=== PATIENT | female | born 1960 | race African-American/Black ===

== ENCOUNTER 2022-03-21 10:21 | Emergency (ER) | payer OTHER ==
[2022-03-21] MEDS ORDERED: Boostrix 0.5 ML (Tdap) VIAL ONE ×2 (11:22→11:24)
[2022-03-21 11:26] LABS: #Eosinphils 0.2 10x3/uL (0.0-0.5); #Monocytes 0.4 10x3/uL (0.0-1.1); %Basophils 0.6 % (0.0-2.0); %Eosinophils 2.4 % (0.0-6.0); %Lymphocytes 32.8 % (18.0-47.0); %Monocytes 6.3 % (0.0-10.0); Hemoglobin 13.8 g/dL (12.0-15.5); Mean Corpuscular HGB CONC 31.7 g/dL (32.0-36.0); Mean Corpuscular Hemoglobin 27.5 pg (27.0-33.0); Mean Corpuscular Volume 86.9 fl (81.6-98.3); Mean Platelet Volume 9.3 fl (7.4-10.4); Platelet Count 333 10x3/uL (150-450); RBC Distribution Width 14.1 % (11.5-14.5); Red Blood Cell (RBC) Count 5.02 10x6/uL (3.90-5.03)
[2022-03-21] MEDS ORDERED: Doxycycline 100 MG CAP PO SCH (11:30)
[2022-03-21 11:55] LABS: ALT (SGPT) 13 U/L (8-55); AST (SGOT) 12 U/L (5-34); Albumin 4.2 g/dL (3.5-5.0); Alkaline Phosphatase 109 U/L (40-110); Anion Gap 15 mmol/L (10-20); BUN (Urea Nitrogen) 14 mg/dL (9.8-20.1); Bilirubin, Total 0.9 mg/dL (0.2-1.2); Calc. Creatinine Clearance 0 mL/min (70-130); Calcium 9.7 mg/dL (7.8-10.44); Carbon Dioxide 29 mmol/L (22-29); Chloride 102 mmol/L (98-107); Estimated GFR 78; Globulin 3.2 g/dL (2.4-3.5); Glucose 124 mg/dL (70-105); Potassium 4.3 mmol/L (3.5-5.1); Protein, Total 7.4 g/dL (6.0-8.3); Sodium 142 mmol/L (136-145)
== END 2022-03-21 12:05 | disposition home or self-care (01) ==
LOC: CSHERS 10:21
DX: S91.332A Puncture wound without foreign body, left foot, initial encounter (principal); L03.116 Cellulitis of left lower limb; E11.40 Type 2 diabetes mellitus with diabetic neuropathy, unspecified; W26.8XXA Contact with other sharp object(s), not elsewhere classified, initial encounter
CPT/HCPCS: 71045; 80053; 84484; 85025; 90471; 90715; 93005; 94760

== ENCOUNTER 2022-04-23 13:39 | Inpatient (IN) | payer OTHER ==
[2022-04-23] MEDS ORDERED: Aspirin Chewable 81 MG TAB ONE (14:28)
[2022-04-23 14:44] LABS: #Eosinphils 0.1 10x3/uL (0.0-0.5); #Monocytes 0.3 10x3/uL (0.0-1.1); #Neutrophils 4.6 10x3/uL (1.5-8.4); %Basophils 0.5 % (0.0-2.0); %Eosinophils 1.8 % (0.0-6.0); %Lymphocytes 32.3 % (18.0-47.0); %Monocytes 4.5 % (0.0-10.0); %Neutrophils 60.5 % (40.0-75.0); Hemoglobin 13.6 g/dL (12.0-15.5); Mean Corpuscular HGB CONC 32.5 g/dL (32.0-36.0); Mean Corpuscular Hemoglobin 27.4 pg (27.0-33.0); Mean Corpuscular Volume 84.5 fl (81.6-98.3); Mean Platelet Volume 9.5 fl (7.4-10.4); Platelet Count 327 10x3/uL (150-450); RBC Distribution Width 14.5 % (11.5-14.5); Red Blood Cell (RBC) Count 4.96 10x6/uL (3.90-5.03); White Blood Cell (WBC) Count 7.6 10x3/uL (3.5-10.5)
[2022-04-23 15:02] LABS: ALT (SGPT) 13 U/L (8-55); AST (SGOT) 11 U/L (5-34); Albumin 4.2 g/dL (3.5-5.0); Alkaline Phosphatase 94 U/L (40-110); Anion Gap 14 mmol/L (10-20); BUN (Urea Nitrogen) 16 mg/dL (9.8-20.1); Bilirubin, Total 0.9 mg/dL (0.2-1.2); CK (CPK) 89 U/L (29-168); Calc. Creatinine Clearance 0 mL/min (70-130); Calcium 9.4 mg/dL (7.8-10.44); Carbon Dioxide 25 mmol/L (22-29); Chloride 106 mmol/L (98-107); Estimated GFR 63; Globulin 3.1 g/dL (2.4-3.5); Glucose 229 mg/dL (70-105); Lipase 50 U/L (8-78); Magnesium 2.1 mg/dL (1.6-2.6); Potassium 3.7 mmol/L (3.5-5.1); Protein, Total 7.3 g/dL (6.0-8.3); Sodium 141 mmol/L (136-145)
[2022-04-23] MEDS ORDERED: Nitroglycerin 2% Ointment 1 INCH/1 GM Packet ONE (16:54)
[2022-04-23] MEDS ORDERED: Ondansetron PF 4 MG/2 ML Vial IVP PRN (17:29)
[2022-04-23] MEDS ORDERED: Ondansetron ODT 4 MG TAB PO PRN (17:29)
[2022-04-23] MEDS ORDERED: Acetaminophen 650 MG Suppository PR PRN (17:29)
[2022-04-23] MEDS ORDERED: Acetaminophen 325 MG TAB PO PRN (17:29)
[2022-04-23] MEDS ORDERED: Insulin Regular 300 UNITS/3 ML VIAL SC PRN ×2 (17:31)
[2022-04-23] MEDS ORDERED: Dextrose 50% Abboject 50 ML SYRINGE SLOW IVP PRN (17:31)
[2022-04-23] MEDS ORDERED: Dextrose 5% in Water 1,000 ML IV PRN (17:31)
[2022-04-23] MEDS ORDERED: Gabapentin 300 MG CAP PO PRN (17:42)
[2022-04-23] MEDS ORDERED: Rivaroxaban 2.5 MG TAB PO SCH (17:45)
[2022-04-23 18:17] VITALS: BMI 39.5
[2022-04-23 19:25] LABS: Troponin I Less than 0.010 ng/mL (< 0.028)
[2022-04-23] MEDS: Simvastatin 10 MG TAB PO SCH (20:29)
[2022-04-23] MEDS: Metoprolol Tartrate 25 MG TAB PO SCH (20:29)
[2022-04-23 20:56] LABS: SARS-CoV-2 NAA Rapid Test Not Detected (NotDetected)
[2022-04-23] MEDS ORDERED: Enoxaparin Sodium 120 MG/0.8 ML SYRINGE SC SCH (21:00)
[2022-04-23 21:29] LABS: Troponin I Less than 0.010 ng/mL (< 0.028)
[2022-04-23] MEDS ORDERED: Enoxaparin Sodium 100 MG/ML SYRINGE SC SCH (22:00)
[2022-04-23] MEDS ORDERED: Enoxaparin Sodium 30 MG/0.3 ML SYRINGE SC SCH (22:00)
[2022-04-23] MEDS: Nitroglycerin 2% Ointment 1 INCH/1 GM Packet TOP SCH (23:35)
[2022-04-24 05:04] LABS: #Eosinphils 0.2 10x3/uL (0.0-0.5); #Monocytes 0.5 10x3/uL (0.0-1.1); #Neutrophils 3.3 10x3/uL (1.5-8.4); %Basophils 0.5 % (0.0-2.0); %Eosinophils 2.4 % (0.0-6.0); %Lymphocytes 46.5 % (18.0-47.0); %Monocytes 6.4 % (0.0-10.0); %Neutrophils 43.8 % (40.0-75.0); Hemoglobin 12.8 g/dL (12.0-15.5); Mean Corpuscular HGB CONC 32.1 g/dL (32.0-36.0); Mean Corpuscular Hemoglobin 27.2 pg (27.0-33.0); Mean Corpuscular Volume 84.7 fl (81.6-98.3); Mean Platelet Volume 9.1 fl (7.4-10.4); Platelet Count 292 10x3/uL (150-450); RBC Distribution Width 14.6 % (11.5-14.5); Red Blood Cell (RBC) Count 4.71 10x6/uL (3.90-5.03); White Blood Cell (WBC) Count 7.5 10x3/uL (3.5-10.5)
[2022-04-24 05:19] LABS: Anion Gap 11 mmol/L (10-20); BUN (Urea Nitrogen) 16 mg/dL (9.8-20.1); Calc. Creatinine Clearance 158 mL/min (70-130); Calcium 9.3 mg/dL (7.8-10.44); Carbon Dioxide 27 mmol/L (22-29); Chloride 106 mmol/L (98-107); Estimated GFR 86; Glucose 111 mg/dL (70-105); Potassium 3.7 mmol/L (3.5-5.1); Sodium 140 mmol/L (136-145)
[2022-04-24] MEDS: Nitroglycerin 2% Ointment 1 INCH/1 GM Packet TOP SCH (05:35)
[2022-04-24 05:36] LABS: Cardiac Risk 3.2 (Less than 4.5); Cholesterol 104 mg/dl (< 200 Desired); HDL Cholesterol 33 mg/dL (>60 Neg Risk); LDL Cholesterol, Calculated 54 mg/dL; Triglycerides 84 mg/dL (Less than 150)
[2022-04-24] MEDS ORDERED: Enoxaparin Sodium 30 MG/0.3 ML SYRINGE SC SCH (09:00)
[2022-04-24] MEDS ORDERED: Enoxaparin Sodium 100 MG/ML SYRINGE SC SCH (09:00)
[2022-04-24] MEDS: Clopidogrel Bisulfate 75 MG TAB PO SCH (09:04)
[2022-04-24] MEDS: Metoprolol Tartrate 25 MG TAB PO SCH ×2 (09:04→22:20)
[2022-04-24] MEDS ORDERED: Dronedarone HCl 400 MG TAB PO SCH (11:00)
[2022-04-24] MEDS ORDERED: Rivaroxaban 10 MG TAB PO SCH (11:00)
[2022-04-24 11:19] LABS: Troponin I Less than 0.010 ng/mL (< 0.028)
[2022-04-24 15:36] LABS: Troponin I Less than 0.010 ng/mL (< 0.028)
[2022-04-24] MEDS: Dronedarone HCl 400 MG TAB PO SCH (18:38)
[2022-04-24 19:13] LABS: Troponin I Less than 0.010 ng/mL (< 0.028)
[2022-04-24] MEDS: Simvastatin 10 MG TAB PO SCH (22:20)
[2022-04-24 22:51] LABS: Troponin I Less than 0.010 ng/mL (< 0.028)
[2022-04-25 05:49] LABS: #Eosinphils 0.2 10x3/uL (0.0-0.5); #Monocytes 0.5 10x3/uL (0.0-1.1); #Neutrophils 3.6 10x3/uL (1.5-8.4); %Basophils 0.4 % (0.0-2.0); %Eosinophils 2.7 % (0.0-6.0); %Lymphocytes 37.7 % (18.0-47.0); %Monocytes 7.3 % (0.0-10.0); %Neutrophils 51.5 % (40.0-75.0); Hemoglobin 12.8 g/dL (12.0-15.5); Mean Corpuscular HGB CONC 31.4 g/dL (32.0-36.0); Mean Corpuscular Hemoglobin 26.6 pg (27.0-33.0); Mean Corpuscular Volume 84.6 fl (81.6-98.3); Mean Platelet Volume 9.4 fl (7.4-10.4); Platelet Count 304 10x3/uL (150-450); RBC Distribution Width 14.6 % (11.5-14.5); Red Blood Cell (RBC) Count 4.81 10x6/uL (3.90-5.03)
[2022-04-25 05:57] LABS: Anion Gap 11 mmol/L (10-20); BUN (Urea Nitrogen) 13 mg/dL (9.8-20.1); Calc. Creatinine Clearance 147 mL/min (70-130); Calcium 9.3 mg/dL (7.8-10.44); Carbon Dioxide 28 mmol/L (22-29); Chloride 105 mmol/L (98-107); Estimated GFR 78; Glucose 107 mg/dL (70-105); Sodium 140 mmol/L (136-145)
[2022-04-25] MEDS: Metoprolol Tartrate 25 MG TAB PO SCH (08:20)
[2022-04-25] MEDS: Clopidogrel Bisulfate 75 MG TAB PO SCH (08:20)
[2022-04-25] MEDS: Dronedarone HCl 400 MG TAB PO SCH (08:20)
[2022-04-25] MEDS ORDERED: Rivaroxaban 10 MG TAB PO SCH ×2 (09:00)
[2022-04-25 11:52] VITALS: BP 105/59; TEMP 97
== END 2022-04-25 15:50 | disposition home or self-care (01) | DRG 310 ==
LOC: CSHERS 13:39 → CSHTELE 17:17
PROVIDERS: ADMIT Hospitalist; ATTEND Family Medicine
DX: I48.0 Paroxysmal atrial fibrillation (principal); I11.0 Hypertensive heart disease with heart failure; I50.9 Heart failure, unspecified; E78.5 Hyperlipidemia, unspecified; E11.40 Type 2 diabetes mellitus with diabetic neuropathy, unspecified; Z20.822 Contact with and (suspected) exposure to COVID-19; R07.89 Other chest pain; Z79.01 Long term (current) use of anticoagulants; Z79.899 Other long term (current) drug therapy; Z79.84 Long term (current) use of oral hypoglycemic drugs; Z98.890 Other specified postprocedural states
CPT/HCPCS: 36415; 36416; 71045; 80048; 80053; 80061; 82550; 83690; 83735; 84443; 84484; 85025; 93005; 93306; 94760; J1650; U0002

== ENCOUNTER 2022-10-08 02:47 | Emergency (ER) | payer OTHER ==
[2022-10-08 03:37] LABS: #Basophils 0.1 10x3/uL (0.0-0.2); #Eosinphils 0.2 10x3/uL (0.0-0.5); #Monocytes 0.5 10x3/uL (0.0-1.1); #Neutrophils 4.8 10x3/uL (1.5-8.4); %Basophils 0.7 % (0.0-2.0); %Eosinophils 2.6 % (0.0-6.0); %Monocytes 5.6 % (0.0-10.0); %Neutrophils 52.9 % (40.0-75.0); Hemoglobin 13.1 g/dL (12.0-15.5); Mean Corpuscular HGB CONC 30.3 g/dL (32.0-36.0); Mean Corpuscular Hemoglobin 25.7 pg (27.0-33.0); Mean Corpuscular Volume 84.7 fl (81.6-98.3); Mean Platelet Volume 9.8 fl (7.4-10.4); Platelet Count 369 10x3/uL (150-450); RBC Distribution Width 15.3 % (11.5-14.5)
[2022-10-08 03:49] LABS: Bilirubin Neg (Negative); Blood, Urine Negative (Negative); Clarity Clear (Clear); Glucose, Urine (Dipstick) >=1000 mg/dL (Negative); Ketone, Urine Negative (Negative); Leukocyte Negative (Negative); Nitrite Negative (Negative); Protein, Urine (Dipstick) Negative (Neg-Trace); Urobilinogen Normal mg/dL (Less than 2)
[2022-10-08 03:53] LABS: ALT (SGPT) 11 U/L (8-55); AST (SGOT) 12 U/L (5-34); Albumin 4.2 g/dL (3.5-5.0); Alkaline Phosphatase 109 U/L (40-110); Anion Gap 20 mmol/L (10-20); BUN (Urea Nitrogen) 14 mg/dL (9.8-20.1); Bilirubin, Total 0.9 mg/dL (0.2-1.2); Calc. Creatinine Clearance 0 mL/min (70-130); Calcium 9.6 mg/dL (7.8-10.44); Carbon Dioxide 22 mmol/L (22-29); Chloride 103 mmol/L (98-107); Estimated GFR 75; Globulin 3.3 g/dL (2.4-3.5); Glucose 109 mg/dL (70-105); Lipase 115 U/L (8-78); Protein, Total 7.5 g/dL (6.0-8.3); Sodium 141 mmol/L (136-145)
== END 2022-10-08 05:27 | disposition home or self-care (01) ==
LOC: CSHERS 02:47
DX: E11.65 Type 2 diabetes mellitus with hyperglycemia (principal); Z79.84 Long term (current) use of oral hypoglycemic drugs
CPT/HCPCS: 71045; 80053; 81003; 83605; 83690; 84484; 85025; 93005; 96360